=== PATIENT | female | born 1990 | race Two or more races ===

== ENCOUNTER 2020-02-26 11:11 | Emergency (ER) | payer MEDICAID ==
[~2020-02-26] VITALS: Ht 172.7 cm; Wt 70.5 kg
[2020-02-26 12:20] LABS: CLARITY URINE CLEAR (CLEAR); COLOR URINE YELLOW (YELLOW); KETONES URINE NEGATIVE (NEGATIVE); LEUKOCYTE ESTERASE URINE TRACE (NEGATIVE); NITRITE URINE NEGATIVE (NEGATIVE); OCCULT BLOOD URINE NEGATIVE (NEGATIVE); PH URINE 8.5 (4.5-8.0); PROTEIN URINE NEGATIVE (NEGATIVE); SPECIFIC GRAVITY URINE 1.015 (1.005-1.030)
[2020-02-26] MEDS ORDERED: KETOROLAC 30MG/ML VIAL IM ONE (12:30)
[2020-02-26] MEDS ORDERED: AZITHROMYCIN 500 MG TABLET PO ONE (14:00)
[2020-02-26] MEDS ORDERED: CEFTRIAXONE SODIUM 250 MG/VIAL IM ONE (14:00)
[2020-02-26] MEDS ORDERED: LIDOCAINE HCL/PF 1% 10 MG/ML 5ML VIAL IJ ONE (14:00)
[2020-02-26 14:05] VITALS: BP 112/74
[2020-02-28 04:09] LABS: NEISSERIA GONORRHOEAE NAA Negative (Negative)
== END 2020-02-26 14:14 | disposition home or self-care (01) ==
LOC: ER 11:11
DX: A60.00 Herpesviral infection of urogenital system, unspecified (principal); N39.0 Urinary tract infection, site not specified
CPT/HCPCS: 81003; 81025; 87210; 87491; 87591; 96372; 99284; J0696; J1885; J3490; 87529

== ENCOUNTER 2020-12-04 19:44 | Emergency (ER) | payer MEDICAID ==
[~2020-12-04] VITALS: Ht 172.7 cm; Wt 65.0 kg
[2020-12-04 20:18] VITALS: BP 121/91
[2020-12-04 21:27] LABS: BASOPHILS % 1.5 % (0.0-2.0); EOSINOPHILS % 0.9 % (0.0-5.0); HEMATOCRIT. 40.6 % (36.0-48.0); HEMOGLOBIN. 13.9 g/dL (12.0-16.0); LYMPHOCYTES % 29.6 % (20.0-50.0); MEAN CORPUSCULAR HEMOGLOBIN 30.9 pg (28.0-32.0); MEAN CORPUSCULAR VOLUME 90.4 fL (81.0-99.0); MEAN PLATELET VOLUME 9.4 fl (7.4-10.4); PLATELET 155 x1000/uL (130-400); RED BLOOD CELL COUNT 4.49 mill/uL (4.2-5.4); RED CELL DISTRIBUTION WIDTH 13.7 % (11.6-14.6)
[2020-12-04 21:35] LABS: CHLORIDE 105 mEq/L (98-107)
[2020-12-04 21:47] LABS: HCG SCREEN NEGATIVE
[2020-12-04 22:03] LABS: CLARITY URINE CLOUDY (CLEAR); COLOR URINE YELLOW (YELLOW); KETONES URINE NEGATIVE (NEGATIVE); LEUKOCYTE ESTERASE URINE 2+ (NEGATIVE); NITRITE URINE NEGATIVE (NEGATIVE); OCCULT BLOOD URINE NEGATIVE (NEGATIVE); PH URINE 5.5 (4.5-8.0); PROTEIN URINE NEGATIVE (NEGATIVE); SPECIFIC GRAVITY URINE 1.017 (1.005-1.030); UROBILINOGEN URINE 0.2 E.U./dL (0.2-1.0)
== END 2020-12-05 01:00 | disposition home or self-care (01) ==
LOC: ER 19:44
DX: N83.202 Unspecified ovarian cyst, left side (principal); D25.9 Leiomyoma of uterus, unspecified; R82.81 Pyuria; Z91.013 Allergy to seafood
CPT/HCPCS: 36415; 76700; 76830; 76856; 80048; 80076; 81003; 81025; 84703; 85025; 93005; 99285